=== PATIENT | male | born 1980 | race Caucasian/White ===

== ENCOUNTER 2016-10-18 09:02 | Observation (INO) | payer OTHER ==
[~2016-10-18] VITALS: Ht 177.8 cm; Wt 95.9 kg
--- NOTE | 2016-10-18 11:32 | DIAGNOSTIC IMAGING REPORT ---
PROCEDURE: US ABDOMEN ULTRASOUND-LIMITED INDICATION: RUQ PAIN TECHNIQUE: Falcon scale and color Doppler sonographic images of the abdomen were obtained without comparison. COMPARISON: None. FINDINGS: The liver demonstrates slight increased echogenicity. No mass or intrahepatic biliary dilatation. The gallbladder is normal without stones or sludge. The wall is normal thickness measuring 1.6 mm No pericholecystic fluid or Francis sign. The extrahepatic common duct is normal measuring 3.1 mm The visualized pancreas is normal without ductal dilatation or peripancreatic fluid collection. The abdominal aorta is normal in its course and caliber. The retrohepatic inferior vena cava is patent. There is appropriate hepatopetal flow in the portal vein. The right kidney measures 12.4 cm in length. There is no perihepatic or perisplenic ascites. IMPRESSION: 1. Fatty liver.
--- NOTE | 2016-10-18 13:36 | ED ORDER SUMMARY ---
..... Patient: JUAN KO OrderSheet [facility] VisitID: [id number] [place] [address] 35y, M Registration Date/Time: 10/18/2016 ORDER SHEET Weight: 90.7 kg (stated) Allergies: No Known Drug Allergy GENERAL ORDERS: CBC w Diff Urgent (:10/18/2016 Tahira Mathews) (Ack 9:21 Luis Ener) (9:25 MWinterer R.N.) CMP Urgent (:10/18/2016 Tahira Mathews) (Ack 9:21 Luis Ener) (9:25 MWinterer R.N.) UA-Culture if indicated Urgent (:10/18/2016 Tahira Mathews) (Ack 9:21 Maddy) (9:25 MWinterer R.N.) Amylase Urgent (:10/18/2016 Tahira Mathews) (Ack 9:21 Maddy) (9:25 MWinterer R.N.) Lipase Urgent (:10/18/2016 Tahira Mathews) (Ack 9:21 Luis Ener) (9:25 MWinterer R.N.) US Abdomen Limited (Yes) Urgent (10:31 10/18/2016 Tahira Mathews) (Ack 10:32 TERRIoevicky) (11:32 JBoardley R.N.) MEDICATION ORDERS: GI Cocktail WHITE PO 30 mL with Lidocaine Viscous Mouth/Throat 15 mL, Maalox Plus Oral 15 mL (NOW) (11:38 10/18/2016 JBoardlevalentina R.N. verbal order read back to Tahira Mathews) (11:39 JBoardlevalentina R.N.) IV FLUIDS: IV NS : initial bolus none -, then 1000 mL/hr for X1 (NOW) (09:10/18/2016 Tahira Mathews) (Ack 9:20 MWinterer R.N.) (9:27 JBoardlevalentina R.N.) Demerol IV 25 mg (HIGH ALERT MEDICATION, NOW) (09:10/18/2016 Tahira Mathews) (Ack 9:20 MWinterer R.N.) (9:28 JBoardley R.N.) Zofran IV 4 mg (NOW) (09:19 10/18/2016 Tahira Mathews) (Ack 9:20 MWinterer R.N.) (9:28 JBoardley R.N.) Famotidine IV 20 mg/50mL (NOW) (09:35 10/18/2016 Tahira Mathews) (Ack 9:36 MWinterer R.N.) (9:43 MWinterer R.N.) Demerol IV 25 mg (HIGH ALERT MEDICATION, NOW) (10:30 10/18/2016 Tahira Mathews) (Ack 10:31 MWinterer R.N.) (10:36 JBoardlevalentina R.N.) Dilaudid IV 1 mg (HIGH ALERT MEDICATION, NOW) (12:50 10/18/2016 MWinterer R.N. verbal order read back to Tahira Mathews) (12:54 MWinterer R.N.) ORDER SHEET NOTES: [Electronically signed by Issa Mejía Dr. (14:06 10/18/2016)] [Electronically signed by Valerie Harp R.N. (18:08 10/18/2016)] [Electronically locked/signed by Valerie Harp R.N. (18:08 10/18/2016)]
--- NOTE | 2016-10-18 13:36 | ED ORDER SUMMARY ---
..... Patient: JUAN KO OrderSheet [facility] VisitID: [id number] [place] [address] 35y, M Registration Date/Time: 10/18/2016 ORDER SHEET Weight: 90.7 kg (stated) Allergies: No Known Drug Allergy GENERAL ORDERS: CBC w Diff Urgent (:10/18/2016 Tahira Mathews) (Ack 9:21 Luis Ener) (9:25 MWinterer R.N.) CMP Urgent (:10/18/2016 Tahira Mathews) (Ack 9:21 Luis Ener) (9:25 MWinterer R.N.) UA-Culture if indicated Urgent (:10/18/2016 Tahira Mathews) (Ack 9:21 Maddy) (9:25 MWinterer R.N.) Amylase Urgent (:10/18/2016 Tahira Mathews) (Ack 9:21 Maddy) (9:25 MWinterer R.N.) Lipase Urgent (:10/18/2016 Tahira Mathews) (Ack 9:21 Luis Ener) (9:25 MWinterer R.N.) US Abdomen Limited (Yes) Urgent (10:31 10/18/2016 Tahira Mathews) (Ack 10:32 TERRIoevicky) (11:32 JBoardley R.N.) MEDICATION ORDERS: GI Cocktail WHITE PO 30 mL with Lidocaine Viscous Mouth/Throat 15 mL, Maalox Plus Oral 15 mL (NOW) (11:38 10/18/2016 JBoardlevalentina R.N. verbal order read back to Tahira Mathews) (11:39 JBoardlevalentina R.N.) IV FLUIDS: IV NS : initial bolus none -, then 1000 mL/hr for X1 (NOW) (09:10/18/2016 Tahira Mathews) (Ack 9:20 MWinterer R.N.) (9:27 JBoardlevalentina R.N.) Demerol IV 25 mg (HIGH ALERT MEDICATION, NOW) (09:10/18/2016 Tahira Mathews) (Ack 9:20 MWinterer R.N.) (9:28 JBoardley R.N.) Zofran IV 4 mg (NOW) (09:19 10/18/2016 Tahira Mathews) (Ack 9:20 MWinterer R.N.) (9:28 JBoardley R.N.) Famotidine IV 20 mg/50mL (NOW) (09:35 10/18/2016 Tahira Mathews) (Ack 9:36 MWinterer R.N.) (9:43 MWinterer R.N.) Demerol IV 25 mg (HIGH ALERT MEDICATION, NOW) (10:30 10/18/2016 Tahira Mathews) (Ack 10:31 MWinterer R.N.) (10:36 JBoardlevalentina R.N.) Dilaudid IV 1 mg (HIGH ALERT MEDICATION, NOW) (12:50 10/18/2016 MWinterer R.N. verbal order read back to Taihra Mathews) (12:54 MWinterer R.N.) ORDER SHEET NOTES: [Electronically signed by Issa Mejía Dr. (14:06 10/18/2016)] [Electronically signed by Valerie Harp R.N. (18:08 10/18/2016)] [Electronically locked/signed by Valerie Harp R.N. (18:08 10/18/2016)]
--- NOTE | 2016-10-18 13:36 | ED CLINICAL REPORT ---
Clinical Report - Physicians/Mid Levels [facility] [address] [place] [address] 10/18/2016 9:08 Patient: JUAN KO Time Seen: 09:14; initial patient contact. Arrived- By private vehicle. Historian- patient. HISTORY OF PRESENT ILLNESS Chief Complaint: ABDOMINAL PAIN. This started today and is still present (persistent). It was abrupt in onset and has been waxing/waning. At its maximum, severity described as moderate. When seen in the E.D., severity described as moderate. Modifying factors. Not worsened by anything. Not relieved by anything. It is described as sharp and stabbing. No radiation. It is described as located in the epigastric area. The patient has had nausea and vomiting. No loss of appetite or diarrhea. (Denies excessive NSAID or EtOH use.). No recent travel. Similar symptoms previously: Several times. ( Had an EGD ~ 6 yrs ago and told it was gastritis and was started on Omeprazole.). Recent medical care: Not recently seen/assessed. REVIEW OF SYSTEMS No constipation, black stools, hematemesis, difficulty with urination or bloody stools. No fever or chills. All systems otherwise negative, except as recorded above. PAST HISTORY See nurses notes. Surgeries: Sinus surgery. SOCIAL HISTORY Never smoker. Occasional alcohol use. History of drug use: marijuana. ADDITIONAL NOTES The nursing notes have been reviewed. PHYSICAL EXAM Vital Signs: 10/18/2016 09:12 BP: 136/86. HR: 62. RR: 16. O2 saturation: 100%. Temp: 98.7 F. Pain level now: 10/10. Have been reviewed as normal. Appearance: Alert. Oriented X3. No acute distress. Eyes: Eyes normal inspection. No scleral icterus. ENT: Dry mucous membranes present. CVS: Normal heart rate and rhythm. Heart sounds normal. Respiratory: No respiratory distress. Breath sounds normal. Chest nontender. Abdomen: Soft. Moderate tenderness in the epigastric area with guarding present. No rebound tenderness or Francis's sign present. Bowel sounds normal. No organomegaly. No mass. Back: Normal inspection. No CVA tenderness. Skin: Skin warm and dry. Normal skin color. Extremities: No lower extremity edema. Neuro: Oriented X 3. No motor deficit. LABS, X-RAYS, AND EKG Abdominal Sonogram: (The liver demonstrates slight increased echogenicity. No mass or intrahepatic biliary dilatation. The gallbladder is normal without stones or sludge. The wall is normal thickness measuring 1.6 mm No pericholecystic fluid or Francis sign. The extrahepatic common duct is normal measuring 3.1 mm The visualized pancreas is normal without ductal dilatation or peripancreatic fluid collection. The abdominal aorta is normal in its course and caliber. The retrohepatic inferior vena cava is patent. There is appropriate hepatopetal flow in the portal vein. The right kidney measures 12.4 cm in length. There is no perihepatic or perisplenic ascites. IMPRESSION: 1. Fatty liver.). Interpretation time: 1133. Laboratory Tests: UA-Culture if indicated: (SHAKIRA: 10/18/2016 09:20) ( [facility] 10/18/2016 10:09) Final results Test Result Flag Units (Reference) URINE COLOR YELLOW URINE APPEARANCE CLEAR URINE GLUCOSE NEGATIVE (NEGATIVE) URINE BILIRUBIN NEGATIVE (NEGATIVE) URINE KETONE 2+ (NEGATIVE) URINE SPECIFIC GRAVITY 1.020 (1.010-1.030) URINE PH 7.0 (5.0-8.0) URINE PROTEIN TRACE (NEGATIVE) URINE UROBILINOGEN 0.2 EU/dL (0.2-1.0) URINE NITRITE NEGATIVE (NEGATIVE) URINE BLOOD NEGATIVE (NEGATIVE) URINE LEUK ESTERASE NEGATIVE (NEGATIVE) URINE RBC 0-1 rbc/hpf (0-1) URINE WBC RARE wbc/hpf (0-1) URINE EPITHELIAL CELLS NONE SEEN EPI/hpf (0-5) URINE BACTERIA NONE SEEN (NONE SEEN) URINE COMMENT CULT NOT INDICATED 1+ MUCOUSURINE CULTURES ARE SET-UP BASED ON THE FOLLOWING CRITERIA:POSITIVE NITRITEPOSITIVE LEUKOCYTE ESTERASEGREATER THAN 10 WHITE BLOOD CELLSMODERATE (2+) OR GREATER BACTERIA CBC w Diff: (SHAKIRA: 10/18/2016 09:21) ( [facility] 10/18/2016 10:06) Final results Test Result Flag Units (Reference) WHITE BLOOD COUNT 15.4 H K/uL (4.5-11.5) RED BLOOD COUNT 4.74 M/uL (4.50-5.90) HEMOGLOBIN 15.3 gm/dL (13.5-17.5) HEMATOCRIT 44.8 % (41.0-53.0) MEAN CELL VOLUME 95 fL (80-100) MEAN CORPUSCULAR HGB 32 pg (26-34) MEAN CORPUSCULAR HGB CONC 34 g/dL (31-37) RED CELL DISTRIBUTION WIDTH 13.1 % (11.6-14.8) PLATELET COUNT 215 K/uL (150-400) NEUTROPHIL % 87.9 H % (50-75) LYMPH % 7.6 L % (25-40) MONO % 4.2 % (3-14) EOSINOPHIL % 0.1 % (0-4) BASOPHIL % 0.2 % (0-2) CMP: (SHAKIRA: 10/18/2016 09:21) ( MsgRcvd 10/18/2016 10:07) Final results Test Result Flag Units (Reference) GLUCOSE 165 H mg/dL (70-110) BUN 14 mg/dL (7-18) CREATININE 0.9 mg/dL (0.6-1.3) Estimated GFR >60 mL/min Estimated GFR- >60 mL/min Note: Persistent reduction over 3 months in eGFR<60 mL/min/1.73 m2 defines CKD. Patients with eGFR values>=60 mL/min/1.73 m2 may also have CKD if evidence ofpersistent proteinuria. Additional information may be foundat www.kidney.org. SODIUM 140 mmol/L (136-145) POTASSIUM 3.7 mmol/L (3.5-5.1) CHLORIDE 102 mmol/L (98-107) CARBON DIOXIDE 22 mmol/L (21-32) CALCIUM 9.0 mg/dL (8.5-10.1) TOTAL PROTEIN 8.6 H g/dL (6.4-8.2) ALBUMIN 4.6 g/dL (3.3-5.0) BILIRUBIN, TOTAL 0.4 mg/dL (0.0-1.0) ALKALINE PHOSPHATASE 61 U/L (46-116) AST (SGOT) 77 H U/L (15-37) ALT (SGPT) 121 H U/L (12-78) LIPASE 138 U/L (73-393) AMYLASE 51 U/L (25-115) . PROGRESS AND PROCEDURES Discussed case with on-call health care provider, (call returned 13:15 Dr. Waddell. Asked that pt be admitted to the hospitalist and he will do an EGD.). Discussed case with hospitalist, (call returned 13:35 Dr. Narvaez). Reviewed test results and need for additional work-up. Agreed upon decision to place in observation. Health care provider will see patient in ED. CLINICAL IMPRESSION Acute epigastric abdominal pain of unknown cause. INSTRUCTIONS Follow-up: Screening today revealed the patient's blood pressure to be in the hypertensive range. The patient was admitted and blood pressure will be managed during the admission. (Electronically signed by Issa Mejía Dr. 10/18/2016 14:06)
--- NOTE | 2016-10-18 13:36 | ED NURSING NOTES ---
Clinical Report - Nurses [facility] [address] [place] [address] 10/18/2016 9:08 Patient: JUAN KO TRIAGE Acuity: LEVEL 3. Chief Complaint: ABDOMINAL PAIN and VOMITING. Alert. No acute distress. SEPSIS SCREEN: Sepsis Screen. Negative (no infection suspected/documented). --09:15 Valerie Harp R.N. 09:12 10/18/16. BP: 136/86. HR: 62. RR: 16. O2 saturation: 100%. Temp: 98.7 F (oral). Pain level now: 10/10. --09:15 Valerie Harp R.N. Weight: 90.7 kg stated. Height/Length: 70 inches Per Patient. BMI: 28.7. --09:13 Valerie Harp R.N. Medications Amitriptyline HCl Oral. --09:14 Valerie Harp R.N. Omeprazole Oral. --09:14 Valerie Harp R.N. Medication/allergy information source: the patient. --09:16 Valerie Harp R.N. Allergies No Known Drug Allergy. --09:14 Valerie Harp R.N. History Arrived by private vehicle. Historian: patient. Accompanied by spouse. Primary physician (Joey). Describes the quality as "pain", sharp and stabbing. Relates location as in the epigastric area. Notes pain level as 10/10 on arrival and at maximum. Treatment MANAGER READING: (pepto). SOCIAL HX: Never smoker. Occasional alcohol use. History of occasional drug use: marijuana. FALL RISK ASSESSMENT: Fall risk assessment completed. No fall risk identified. NUTRITIONAL RISK ASSESSMENT: The nutritional risk assessment revealed no deficiencies. FUNCTIONAL ASSESSMENT: Functional assessment: no impairments noted. LEARNING NEEDS ASSESSMENT: The learning needs assessment revealed no barriers. SKIN INTEGRITY ASSESSMENT: Skin integrity risk assessment completed. No skin integrity risk identified. --09:15 Valerie Harp R.N. ADDITIONAL SURGERIES: Sinus Surgery. --09:15 Valerie Harp R.N. Assessment GENERAL / NEURO / PSYCH: Alert. Oriented X 4. Appears in no acute distress. Kennedy Coma Scale: 15- eyes open spontaneously (4); best verbal response- oriented x 4 (5); best motor response- obeys commands (6). Patient appears calm and cooperative. RESPIRATORY: Respirations not labored. CVS: Capillary refill less than 2 seconds. GI / : Abdomen soft and nontender. SKIN: Mucous membranes are pink. Skin is warm and dry. --09:15 Valerie Harp R.N. Interventions ID band on patient. To treatment room. --09:15 Valerie Harp R.N. PHYSICAL ASSESSMENT 09:16 10/18/16. Ambulatory to room. GENERAL / NEURO / PSYCH: Alert. Oriented X 4. Appears in no acute distress. HEENT: Mucous membranes are pink. RESPIRATORY: Respirations not labored. CVS: Capillary refill less than 2 seconds. GI / : Abdomen soft and nontender. SKIN: Skin is warm and dry. --09:16 Valerie Harp R.N. NURSING PROGRESS NOTES 09:10/18/16. Patient gowned. Two patient identifiers checked. Checked patient name and birthdate. Call light placed in reach. Side rails up x 1. Bed placed in lowest position. Brakes of bed on. Patient ready for evaluation- chart flagged and ED physician notified. --09:16 Valerie Harp R.N. 09:17 10/18/2016 Site #1 started via IV in the right antecubital space with an 20g angiocath, with aseptic technique and good blood return; one attempt. Blood drawn: rainbow set. Labeled in the presence of the patient and sent to the lab. Saline lock flushed with 10 mL saline. --09:27 Juan Antonio Munoz R.N. 09:18 10/18/2016 Zofran (Ondansetron HCl) IVP 4 mg given over 2 minute(s) via site #1. Allergies verified and confirmed 5 rights. IV patency established. IV site checked: no pain, redness, or swelling. IV flushed thoroughly pre- and post-medication administration. IVP given by RN. --09:28 Juan Antonio Munoz R.N. 09:22 10/18/2016 Started bag #1 1000 mL IV Fluids IV NS (Saline); at 1000 mL/hr over 1 hour(s) via site #1. Allergies verified and confirmed 5 rights. IV patency established. IV site checked: no pain, redness, or swelling. IV flushed thoroughly pre- and post-medication administration. Completed per protocol. --:27 Juan Antonio Munoz R.N. 09:23 10/18/2016 Demerol (Meperidine HCl) IVP 25 mg given over 2 minute(s) via site #1. Allergies verified and confirmed 5 rights. IV patency established. IV site checked: no pain, redness, or swelling. IV flushed thoroughly pre- and post-medication administration. IVP given by RN. --09:28 Juan Antonio Munoz R.N. 09:10/18/16. --: Juan Antonio Munoz R.N. 09:10/18/16. BP: 122/53. HR: 59. RR: 16. O2 saturation: 100% on room air. --:28 Juan Antonio Munoz R.N. 09:10/18/16. Patient ID band checked for patient name and birthdate urine collected; sample sent to lab for urinalysis and culture. Specimen labeled in the presence of the patient. --: Juan Antonio Munoz R.N. 09:10/18/16. Pulse oximeter and NIBP monitor placed on patient; monitor alarms on. --: Juan Antonio Munoz R.N. 09:10/18/16. Patient and family informed about reason for wait and about plan of care. --:29 Juan Antonio Munoz R.N. 09:29 10/18/16. Patient waiting for lab results. --:29 Juan Antonio Munoz R.N. 09:43 10/18/2016 Started 20 mg of Famotidine IVPB in bag #1 50 mL; at 100 mL/hr over 30 minute(s) via site #1 via IV pump. Allergies verified and confirmed 5 rights. IV patency established. IV site checked: no pain, redness, or swelling. IV flushed thoroughly pre- and post-medication administration. --09:43 Valerie Harp R.N. 10:10/18/2016 Famotidine IVPB Discontinued: bag #1 infused. Total amount infused: 50 mL. IV patency established. IV site checked: no pain, redness, or swelling. IV flushed thoroughly. --10:24 Valerie Harp R.N. 10:10/18/2016 Demerol IVP Response: no adverse reaction pain is improving. Symptoms have improved the patient feels better. --10:25 Valerie Harp R.N. 10:10/18/2016 Demerol (Meperidine HCl) IVP 25 mg given over 2 minute(s) via site #1. Allergies verified and confirmed 5 rights. IV patency established. IV site checked: no pain, redness, or swelling. IV flushed thoroughly pre- and post-medication administration. IVP given by RN. --10:36 Juan Antonio Munoz R.N. 10:10/18/2016 IV Fluids IV NS Discontinued: bag #1 infused. Total amount infused: 1000 mL. IV patency established. IV site checked: no pain, redness, or swelling. IV flushed thoroughly. --10:31 Valerie Harp R.N. 11:32 10/18/16. BP: 159/75. HR: 71. RR: 16. O2 saturation: 100% on room air. Pain level now: 01/19. --11:33 Juan Antonio Munoz R.N. 11:33 10/18/16. --11:33 Juan Antonio Munoz R.N. 11:33 10/18/16. ( US completed at bedside). --11:33 Juan Antonio Munoz R.N. 11:39 10/18/2016 GI COCKTAIL WHITE (Simethicone) PO 30 mL given. Allergies verified and confirmed 5 rights. --11:39 Juan Antonio Munoz R.N. 12:03 10/18/16. Patient and family informed about reason for wait and about plan of care. --12:03 Juan Antonio Munoz R.N. 12:10/18/16. Patient waiting for disposition. --12:03 Juan Antonio Munoz R.N. 12:04 10/18/16. Overall patient status is the same- he states feels the same. ( pain went to 7/10 after med, pain prior to med was 8/10, feels "a little better"). --12:04 Juan Antonio Munoz R.N. 12:54 10/18/2016 Dilaudid (HYDROmorphone HCl PF) IVP 1 mg given over 2 minute(s) via site #1. Allergies verified, confirmed 5 rights and sedative warning given to the patient. IV patency established. IV site checked: no pain, redness, or swelling. IV flushed thoroughly pre- and post-medication administration. IVP given by RN. --12:54 Valerie Harp R.N. 12:54 10/18/16. BP: 152/100. HR: 74. RR: 16. O2 saturation: 99% on room air. Pain level now: 12/19. --12:57 Valerie Harp R.N. 14:03 10/18/16. BP: 143/84. HR: 85. RR: 16. O2 saturation: 95% on room air. --14:05 Valerie Harp R.N. DISPOSITION / DISCHARGE Departure time: 14:35 Oct 18 2016. Admitted to Acute Care. Transported via stretcher by [facility]. Report was given to a nurse via a phone call. Report included patient's care, treatment, medications, reviewed medication reconcilliation, and condition (including any recent changes or anticipated changes). All questions were answered. Report was acknowledged and care was transferred. (HARVEY Scanlon). Patient's personal items include: socks and cell phone, shorts; items were given to the patient and transported with the patient. He did not have glasses, contacts, dentures or a hearing aid. --14:35 Valerie Harp R.N. 14:33 10/18/16. BP: 150/82. HR: 80. RR: 20. O2 saturation: 95% on room air. Pain level now: 08/19. --14:35 Valerie Harp R.N. 14:35 10/18/2016 Site #[address] upon admission; patent, no pain and no signs of infection or infiltration; flushes easily. --14:35 Valerie Harp R.N. Locked/Released at 10/18/2016 18:09 by Valerie Harp R.N.
--- NOTE | 2016-10-18 14:49 | Progress Note ---
Subjective General Admission History and Physical Examination Patient Name: Reed Combs Patient ID: [id number] Admission Date: October 18, 2016 Primary Care Provider: ([facility] Attending Physician: Du Narvaez M.D. Admitting Physician: Du Narvaez M.D. Code Status: FULL CODE Room: Status: Observation acute care SUBJECTIVE Historian: Patient and Reliability: Good Chief Complaint: Epigastric pain Vomiting History of Present Illness: The patient is a 35-year-old white male with a significant past medical history of GERD, sleep disorder who presented to [facility] emergency room 's on the day of admission secondary to complaints of acute abdominal pain and intractable vomiting The [facility] ER evaluation was consistent with potential great gastritis, GERD. Patient was consulted by general surgery. In the emergency department. General surgery asked to be consulting physician while internists remain as the admitting physician. Secondary to the above, the patient was admitted by Du Narvaez M.D. for further evaluation and treatment. Patient reports that he woke up early this morning with intense epigastric pain. Patient had multiple rounds of vomiting this morning. Patient states that mostly is dry heaves. Patient had no diarrhea. No fever no rash. Patient had a similar pain 6 years ago. Patient was seen by his primary care at [facility], [place], operated by [facility]. Patient then had a follow-up EGD at that time. This mostly showed gastritis. Patient was put on omeprazole in this gave him relief up until this recurrent episode. Patient has a history of tobacco chewing on a daily basis. Patient has no history of alcohol use or prolonged NSAID use. Patient has no bleeding from the stool. PAST MEDICAL HISTORY Illnesses: 1. Gastritis, GERD 2. Sleep disorder Allergies: NKDA Medications: Omeprazole 20 mg by mouth daily Triazolam 0.25 mg by no at bedtime Adderall 20 mg by mouth daily (discontinued) Surgery: Sinus surgery EGD 6 years ago Hospitalizations: None FAMILY HISTORY Parents: 1. Father living, healthy 2. Mother- living, healthy SOCIAL HISTORY 1. Marital Status: 11 years 2. Christianity: unknown 3. Education: College 4. Employment History: Working, involves travel, 5. Occupational health exposures: Unknown HABITS 1. Tobacco: Tobacco use (chewing) 2. Drugs: None 3. Alcohol: None 4. Caffeine: Unknown HEALTH SUPERVISION Item/Test unknown IMMUNIZATIONS: Unknown ADVANCED DIRECTIVES: 1. Advanced directive; no living will or advanced directive 2. POLST: No; 3. 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 Donor card: Unknown REVIEW OF SYSTEMS Remarkable for those things stated in the history of present illness and past medical history. Seventeen point review of system completed with the following notable findings: Physical Exam Vital Signs / I&Os Vital Signs Date Time Temp Pulse Resp B/P Pulse O2 O2 Flow FiO2 Ox Delivery Rate 10/18 1724 98.2 78 19 118/69 98 10/18 1720 86 19 118/69 95 10/18 1715 93 17 96/76 95 10/18 1710 85 15 138/102 95 10/18 1705 91 18 119/69 95 10/18 1702 99.1 93 17 123/70 95 10/18 1450 98.1 78 20 136/89 96 Room Air General Appearance Oriented X3 HEENT PERRLA Lungs Normal air movement Neck Supple, No JVD Cardiovascular Regular rate and rhythm, Normal S1 and S2 Extremities Normal exam Psych/Mental Status Mood normal LAB Results Laboratory Tests 10/18 10/18 0920 0921 Chemistry Plasma Sodium (136 - 145 mmol/L) 140 Plasma Potassium (3.5 - 5.1 mmol/L) 3.7 Plasma Chloride (98 - 107 mmol/L) 102 CO2 (Enzymatic) (21 - 32 mmol/L) 22 BUN (7 - 18 mg/dL) 14 Creatinine (0.6 - 1.3 mg/dL) 0.9 Est GFR ( Amer) (mL/min) >60 Est GFR (Non-Af Amer) (mL/min) >60 Glucose (70 - 110 mg/dL) 165 Plasma Calcium (8.5 - 10.1 mg/dL) 9.0 Total Bilirubin (0.0 - 1.0 mg/dL) 0.4 AST (15 - 37 U/L) 77 ALT (12 - 78 U/L) 121 Alkaline Phosphatase (46 - 116 U/L) 61 Total Protein (6.4 - 8.2 g/dL) 8.6 Albumin (3.3 - 5.0 g/dL) 4.6 Amylase (25 - 115 U/L) 51 Lipase (73 - 393 U/L) 138 Hematology WBC (4.5 - 11.5 K/uL) 15.4 RBC (4.50 - 5.90 M/uL) 4.74 Hgb (13.5 - 17.5 gm/dL) 15.3 Hct (41.0 - 53.0 %) 44.8 MCV (80 - 100 fL) 95 MCH (26 - 34 pg) 32 RDW (11.6 - 14.8 %) 13.1 Neut % (Auto) (50 - 75 %) 87.9 Lymph % (Auto) (25 - 40 %) 7.6 [place] % (Auto) (3 - 14 %) 4.2 Eos % (Auto) (0 - 4 %) 0.1 Baso % (Auto) (0 - 2 %) 0.2 Plt Count, EDTA (150 - 400 K/uL) 215 PUBS MCHC (31 - 37 g/dL) 34 Urines Urine Color YELLOW Urine Appearance CLEAR Urine pH (5.0 - 8.0) 7.0 Ur Specific [place] (1.010 - 1.030) 1.020 Urine Protein (NEGATIVE) TRACE Urine Ketones (NEGATIVE) 2+ Urine Blood (NEGATIVE) NEGATIVE Urine Nitrite (NEGATIVE) NEGATIVE Urine Bilirubin (NEGATIVE) NEGATIVE Urine Urobilinogen (0.2 - 1.0 EU/dL) 0.2 Ur Leukocyte Esterase (NEGATIVE) NEGATIVE Urine RBC (0 - 1 rbc/hpf) 0-1 Urine WBC (0 - 1 wbc/hpf) RARE Ur Epithelial Cells (0 - 5 EPI/hpf) NONE SEEN Urine Bacteria (NONE SEEN) NONE SEEN Urine Glucose (NEGATIVE) NEGATIVE Urine Comment CULT NOT INDICATED Microbiology Date/Time Procedure - Status Source Growth 10/18 1650 CLOtest - ORD GASTRIC Assessment and Plan Problem List 1. Epigastric pain Plan Patient is admitted for intractable epigastric pain. Patient also had recurrent episodes of vomiting. Started on ondansetron be given every 4 hours as needed. Protonix 40 mg daily. Consulting general surgery for potential EGD today. 2. GERD (gastroesophageal reflux disease) Plan Previous history of GERD treated previously with PPI. Patient will be nothing by mouth until EGD performed. Pressure for any blood loss. Control pain 3. Vomiting Plan Recurrent emesis over the past 12 hours. Ondansetron 4 mg by mouth every 8 hours. Protonix 40 mg daily 4. Intractable abdominal pain Plan Admission to observation with intractable abdominal pain Current status: Fair, stable Anticipated discharge date: Anticipated discharge in 1-2 days Anticipated discharge placement: Home Patient care time: Time spent in chart review, patient interview, physical exam, CPOE, and care documentation: 70 minutes Visit to patient today: 1 Complexity of care: Mild/moderate DVT prophylaxis: SCDs GI prophylaxis: Protonix 40 mg IV Initial patient evaluation: Emergency department Advance care plan: Full code
[2016-10-18 14:50] VITALS: BP 136/89
[2016-10-18] MEDS ORDERED: RESTORIL30 MG (15:34)
[2016-10-18] MEDS ORDERED: PRILOSEC20 MG (15:35)
[2016-10-18] MEDS ORDERED: AMITRIPTYLINE H10 MG PO (15:35)
[2016-10-18] MEDS ORDERED: MULTIPLE VITAMIN PO (15:36)
[2016-10-18] MEDS ORDERED: ZYRTEC ALLERGY10 MG (15:36)
--- NOTE | 2016-10-18 15:44 | NUR ---
RECEIVED PT FROM ED. HE WILL BE GOING FOR ENDOSCOPY THIS AFTERNOON. PT HAS 5-6/10 EPIGASTRIC PAIN AND HAS BEEN MEDICATED WITH DILAUDID 1 MG. NICOTINE PATCH APPLIED PER ED MD ORDER FOR CHEWING TABACCO USAGE. RAC IL INTACT AND LR 150 CC/HR STARTED. PT AMBULATED TO BED FROM [facility] AND WAS STEADY ON FEET. IS AT BEDSIDE. ADMISSION INFORMATION WAS DONE.
--- NOTE | 2016-10-18 16:23 | Consultation Report ---
History Chief Complaint Epigastric abdominal pain History of Present Illness 35-year-old male who awoke at approximately 2 AM with severe acute onset epigastric abdominal pain approximately 2 hours later developed nausea and vomiting. No hematemesis. No coffee-ground emesis. No diarrhea. No lightheadedness. No prior history of peptic ulcer disease. Patient has had on and off similar symptoms to those which are present today. Patient has undergone upper GI endoscopy probably 6 years ago for similar symptoms. Patient states that 2 days symptoms are worse by far that any he's had so far. No family history of esophageal or gastric or pancreatic cancer. Patient was admitted to [facility] by the hospitalist [facility] were asked to consult. ALLERGIES: No known medical allergies. MEDICATIONS: Femazopam 30 mg daily Omeprazole 20 mg daily Amitriptyline 20 mg daily Multivitamins 1 daily. Zyrtec 1 tablet daily PAST MEDICAL/SURGICAL HISTORY: Sinus surgeries EGD 6 years ago Patient History 1. Epigastric abdominal pain Social History . One son and 1 daughter alive and well. Patient does not smoke however he does chew tobacco. Uses pouches 5-7 per day. Alcohol history 2-3 glasses of wine per week at most. Coffee drinks anywhere between 3-4 cups per day. Recreational drugs marijuana 1 joint every few months. Recreational. FAMILY HISTORY: Mother age 59 in good health Father age 62 in good health. 3 brothers alive and wellas to Medications and Allergies Medications See above dictation Current Medications Sig/Irma Start time Last Medication Dose Route Stop Time Status Admin Pantoprazole Sodium 40 MG DAILY@0600 05/10 0600 AC IV Triazolam 0.25 MG QHS 10/18 2100 AC PO Nicotine 21 MG DAILY 10/18 1600 AC 10/18 TOP 1530 Hydromorphone HCl 1 MG Q1H PRN 10/18 1445 AC 10/18 IV 1526 Lactated Ringer's 1,000 ML ASDIRECTED 10/18 1445 AC 10/18 IV 1453 Ondansetron HCl 4 MG Q6H PRN 10/18 1445 AC IV Allergies Coded Allergies: No Known Drug Allergy (10/18/16) Review of Systems Other No history of hepatitis, jaundice, rheumatic fever, heart murmurs requiring antibiotics, leading tendencies, or blood transfusions. Positive for gastroesophageal reflux. Remaining 12 point review of systems negative. Physical Exam Vital Signs / I&Os Vital Signs Date Time Temp Pulse Resp B/P Pulse O2 O2 Flow FiO2 Ox Delivery Rate 10/18 1450 98.1 78 20 136/89 96 Room Air General Appearance Alert, Oriented X3, Cooperative, No acute distress HEENT Normal exam, Atraumatic, PERRLA, EOMI, Moist mucous membranes Lungs Clear to auscultation Neck Supple, No JVD, No masses, No thyromegaly, No lymphadenopathy Cardiovascular Regular rate and rhythm Abdomen Normal bowel sounds, Soft, No tenderness, No guarding, No masses Extremities No cyanosis, No clubbing, No edema Skin warm and dry. No peripheral cyanosis Neurological No lateralizing signs Psych/Mental Status Mood normal LAB Results Laboratory Tests 10/18 10/18 0920 0921 Chemistry Plasma Sodium (136 - 145 mmol/L) 140 Plasma Potassium (3.5 - 5.1 mmol/L) 3.7 Plasma Chloride (98 - 107 mmol/L) 102 CO2 (Enzymatic) (21 - 32 mmol/L) 22 BUN (7 - 18 mg/dL) 14 Creatinine (0.6 - 1.3 mg/dL) 0.9 Est GFR ( Amer) (mL/min) >60 Est GFR (Non-Af Amer) (mL/min) >60 Glucose (70 - 110 mg/dL) 165 Plasma Calcium (8.5 - 10.1 mg/dL) 9.0 Total Bilirubin (0.0 - 1.0 mg/dL) 0.4 AST (15 - 37 U/L) 77 ALT (12 - 78 U/L) 121 Alkaline Phosphatase (46 - 116 U/L) 61 Total Protein (6.4 - 8.2 g/dL) 8.6 Albumin (3.3 - 5.0 g/dL) 4.6 Amylase (25 - 115 U/L) 51 Lipase (73 - 393 U/L) 138 Hematology WBC (4.5 - 11.5 K/uL) 15.4 RBC (4.50 - 5.90 M/uL) 4.74 Hgb (13.5 - 17.5 gm/dL) 15.3 Hct (41.0 - 53.0 %) 44.8 MCV (80 - 100 fL) 95 MCH (26 - 34 pg) 32 RDW (11.6 - 14.8 %) 13.1 Neut % (Auto) (50 - 75 %) 87.9 Lymph % (Auto) (25 - 40 %) 7.6 [place] % (Auto) (3 - 14 %) 4.2 Eos % (Auto) (0 - 4 %) 0.1 Baso % (Auto) (0 - 2 %) 0.2 Plt Count, EDTA (150 - 400 K/uL) 215 PUBS MCHC (31 - 37 g/dL) 34 Urines Urine Color YELLOW Urine Appearance CLEAR Urine pH (5.0 - 8.0) 7.0 Ur Specific [place] (1.010 - 1.030) 1.020 Urine Protein (NEGATIVE) TRACE Urine Ketones (NEGATIVE) 2+ Urine Blood (NEGATIVE) NEGATIVE Urine Nitrite (NEGATIVE) NEGATIVE Urine Bilirubin (NEGATIVE) NEGATIVE Urine Urobilinogen (0.2 - 1.0 EU/dL) 0.2 Ur Leukocyte Esterase (NEGATIVE) NEGATIVE Urine RBC (0 - 1 rbc/hpf) 0-1 Urine WBC (0 - 1 wbc/hpf) RARE Ur Epithelial Cells (0 - 5 EPI/hpf) NONE SEEN Urine Bacteria (NONE SEEN) NONE SEEN Urine Glucose (NEGATIVE) NEGATIVE Urine Comment CULT NOT INDICATED Imaging Ultrasound of the patient's abdomen interpreted by radiology as a fatty liver. Otherwise normal. Assessment and Plan Problem List 1. Epigastric pain Plan We will schedule patient for upper GI endoscopy rule out peptic ulcer disease. The procedure has been explained to the patient including the potential risks of perforation and bleeding. Patient understands and agrees to proceed and we'll schedule him urgently
--- NOTE | 2016-10-18 17:14 | NUR ---
PT IS AWAKE AND ALERT. PT DENIES PAIN OR NAUSEA. VSS. QUESTIONS ENCOURAGED AND ANSWERED.
--- NOTE | 2016-10-18 17:16 | Operative Report ---
Operative Report Date of Surgery: 10/18/16 Preoperate Diagnosis: epigastric abdominal pain. Rule out peptic ulcer disease Postoperative Diagnosis: fundic glandular polyps. No evidence peptic ulcer disease Surgeon: Angel Luis Waddell MD Spanish Medical Interpreter Surgeon: none Procedure Performed: Upper GI endoscopy. Gastric mucosal biopsies Anesthesia: Total intra- venous general anesthesia Indications: 35-year-old male admitted with acute onset epigastric abdominal pain from the emergency room. Associated with emesis. No hematemesis. No coffee ground emesis. No melenic stool. Prior history of epigastric abdominal pain in the past. Upper GI endoscopy 6 years ago. No history of peptic ulcer disease. FINDINGS: Normal appearing esophagus, EG junction approximately 40 cm from the dental incisors. Gastric mucosal pattern scattered fundic gland or polyps. No evidence of hyperemia or peptic ulcer disease. Duodenal bulb normal. The second- third portion of duodenum normal as well. Surgical Technique: Patient brought to the operating room placed in the left lateral decubitus position. Patient was administered total intravenous anesthesia.. Once anesthesia had taken affect, the posterior pharynx was sprayed using Cetacaine spray. An Olympus fiberoptic video upper GI endoscope was passed in to the patient's posterior pharynx. The esophagus intubated under direct visualization. The scope passed easily down the esophagus through the EG junction which was located approximately at. The scope passed easily through the EG junction into the gastric lumen and eventually into the second third portion of duodenum. On withdrawing the scope, the afore mentioned findings were noted. The scope was withdrawn into the gastric lumen and retroflexed. Good view of the cardia, fundus, EG junction from below, and greater and lesser curvature. Multiple random biopsies were obtained of the gastric mucosa to rule out H. pylori. Multiple biopsies were obtained of the fundic gland or polyps as well. The scope was withdrawn into the EG junction. No attempt was made to biopsy the distal esophagus secondary to the patient pulling out the endoscope at the end of the procedure. Patient tolerated procedure well. Patient was transferred to the recovery room in stable condition. There were no intraoperative or anesthetic complications.
[2016-10-18 17:30] VITALS: BP 117/70
--- NOTE | 2016-10-18 18:09 | ED MED RECONCILIATION SUMMARY ---
Patient: JUAN KO Medication Reconciliation Report [facility] VisitID: [id number] [address] [place] [address] 35y, M Registration Date/Time: 10/18/2016 Weight: 90.7 kg Height/Length: 70 in. BMI: 28.7 ALLERGIES: No Known Drug Allergy The patient's Home Medications are listed below: THE FOLLOWING MEDICATIONS NEED TO BE RECONCILED: Amitriptyline HCl Oral Omeprazole Oral The source(s) of the original Home Medication information: patient The following Medications were given to the patient in the Emergency Department: IV NS IV Fluids bolus 0, then 1000 mL/hr, administered: 10/18/2016 9:22:00 AM Demerol [IVP] IVP 25 mg, administered: 10/18/2016 9:23:00 AM Zofran [IVP] IVP 4 mg, administered: 10/18/2016 9:18:00 AM Famotidine [IVPB] IVPB bolus 0, then 20 mg 100 mL/hr, administered: 10/18/2016 9:43:00 AM Demerol [IVP] IVP 25 mg, administered: 10/18/2016 10:31:00 AM GI COCKTAIL WHITE [PO] PO 30 mL, administered: 10/18/2016 11:39:00 AM Dilaudid [IVP] IVP 1 mg, administered: 10/18/2016 12:54:00 PM The following Medications were prescribed to the patient: None.
--- NOTE | 2016-10-18 18:09 | ED MAR SUMMARY ---
..... Medication Administration Record [facility] [address] [place] [address] Patient: JUAN KO Visit ID: [id number] 35y, M Weight: 90.7 kg Height/Length: 70 in BMI: 28.7 ALLERGIES: No Known Drug Allergy Given 09:18 10/18/2016 Juan Antonio Munoz R.N. Medication Administered: ZOFRAN [IVP] (ONDANSETRON HCL), Dose: 4 mg IVP over 2 minute(s), Site: #1 right AC. Medication Ordered: Zofran IV 4 mg (NOW). Start 09:22 10/18/2016 Juan Antonio Munoz R.N., Stop 10:31 10/18/2016 Valerie Harp R.N. Medication Administered: IV NS (SALINE), Dose: IV Fluids over 1 hour(s), Rate: 1000 mL/hr, Dispensed: 1000 mL bag, Site: #1 right AC. Medication Ordered: IV NS : initial bolus none -, then 1000 mL/hr for X1 (NOW). Given 09:23 10/18/2016 Juan Antonio Munoz R.N. Medication Administered: DEMEROL [IVP] (MEPERIDINE HCL), Dose: 25 mg IVP over 2 minute(s), Site: #1 right AC. Medication Ordered: Demerol IV 25 mg (HIGH ALERT MEDICATION, NOW). Start 09:43 10/18/2016 Valerie Harp R.N., Stop 10:09 10/18/2016 Valerie Harp R.N. Medication Administered: FAMOTIDINE [IVPB], Dose: 20 mg IVPB over 30 minute(s), Rate: 100 mL/hr, Dispensed: 50 mL bag, Site: #1 right AC. Medication Ordered: Famotidine IV 20 mg/50mL (NOW). Given 10:31 10/18/2016 Juan Antonio Munoz R.N. Medication Administered: DEMEROL [IVP] (MEPERIDINE HCL), Dose: 25 mg IVP over 2 minute(s), Site: #1 right AC. Medication Ordered: Demerol IV 25 mg (HIGH ALERT MEDICATION, NOW). Given 11:39 10/18/2016 Juan Antonio Munoz, R.N. Medication Administered: GI COCKTAIL WHITE [PO] (SIMETHICONE), Dose: 30 mL PO. Medication Ordered: GI Cocktail WHITE PO 30 mL with Lidocaine Viscous Mouth/Throat 15 mL, Maalox Plus Oral 15 mL (NOW). Given 12:54 10/18/2016 Valerie Harp RCalvin. Medication Administered: DILAUDID [IVP] (HYDROMORPHONE HCL PF), Dose: 1 mg IVP over 2 minute(s), Site: #1 right AC. Medication Ordered: Dilaudid IV 1 mg (HIGH ALERT MEDICATION, NOW).
--- NOTE | 2016-10-18 18:09 | ED DISCHARGE INSTRUCTIONS ---
Patient: JUAN KO General Instructions [facility] VisitID: [id number] [address] [place] [place] [address] 35y, M Registration Date/Time: 10/18/2016 Acute epigastric abdominal pain of unknown cause. INSTRUCTIONS Follow-up: Screening today revealed the patient's blood pressure to be in the hypertensive range. The patient was admitted and blood pressure will be managed during the admission. (Electronically signed by Issa Mejía Dr. 10/18/2016 14:06)
--- NOTE | 2016-10-18 18:09 | ED DISCHARGE INSTRUCTIONS ---
Patient: JUAN KO General Instructions [facility] VisitID: [id number] [address] [place] [address] 35y, M Registration Date/Time: 10/18/2016 Acute epigastric abdominal pain of unknown cause. INSTRUCTIONS Follow-up: Screening today revealed the patient's blood pressure to be in the hypertensive range. The patient was admitted and blood pressure will be managed during the admission. (Electronically signed by Issa Mejía Dr. 10/18/2016 14:06)
--- NOTE | 2016-10-18 18:09 | ED MAR SUMMARY ---
..... Medication Administration Record [facility] [address] [place] [address] Patient: JUAN KO Visit ID: [id number] 35y, M Weight: 90.7 kg Height/Length: 70 in BMI: 28.7 ALLERGIES: No Known Drug Allergy Given 09:18 10/18/2016 Juan Antonio Munoz R.N. Medication Administered: ZOFRAN [IVP] (ONDANSETRON HCL), Dose: 4 mg IVP over 2 minute(s), Site: #1 right AC. Medication Ordered: Zofran IV 4 mg (NOW). Start 09:22 10/18/2016 Juan Antonio Munoz R.N., Stop 10:31 10/18/2016 Valerie Harp R.N. Medication Administered: IV NS (SALINE), Dose: IV Fluids over 1 hour(s), Rate: 1000 mL/hr, Dispensed: 1000 mL bag, Site: #1 right AC. Medication Ordered: IV NS : initial bolus none -, then 1000 mL/hr for X1 (NOW). Given 09:23 10/18/2016 Juan Antonio Munoz R.N. Medication Administered: DEMEROL [IVP] (MEPERIDINE HCL), Dose: 25 mg IVP over 2 minute(s), Site: #1 right AC. Medication Ordered: Demerol IV 25 mg (HIGH ALERT MEDICATION, NOW). Start 09:43 10/18/2016 Valerie Harp R.N., Stop 10:09 10/18/2016 Valerie Harp R.N. Medication Administered: FAMOTIDINE [IVPB], Dose: 20 mg IVPB over 30 minute(s), Rate: 100 mL/hr, Dispensed: 50 mL bag, Site: #1 right AC. Medication Ordered: Famotidine IV 20 mg/50mL (NOW). Given 10:31 10/18/2016 Juan Antonio Munoz R.N. Medication Administered: DEMEROL [IVP] (MEPERIDINE HCL), Dose: 25 mg IVP over 2 minute(s), Site: #1 right AC. Medication Ordered: Demerol IV 25 mg (HIGH ALERT MEDICATION, NOW). Given 11:39 10/18/2016 Juan Antonio Munoz, R.N. Medication Administered: GI COCKTAIL WHITE [PO] (SIMETHICONE), Dose: 30 mL PO. Medication Ordered: GI Cocktail WHITE PO 30 mL with Lidocaine Viscous Mouth/Throat 15 mL, Maalox Plus Oral 15 mL (NOW). Given 12:54 10/18/2016 Valerie Harp RCalvin. Medication Administered: DILAUDID [IVP] (HYDROMORPHONE HCL PF), Dose: 1 mg IVP over 2 minute(s), Site: #1 right AC. Medication Ordered: Dilaudid IV 1 mg (HIGH ALERT MEDICATION, NOW).
--- NOTE | 2016-10-18 18:09 | ED MED RECONCILIATION SUMMARY ---
Patient: JUAN KO Medication Reconciliation Report [facility] VisitID: [id number] [address] [place] [address] 35y, M Registration Date/Time: 10/18/2016 Weight: 90.7 kg Height/Length: 70 in. BMI: 28.7 ALLERGIES: No Known Drug Allergy The patient's Home Medications are listed below: THE FOLLOWING MEDICATIONS NEED TO BE RECONCILED: Amitriptyline HCl Oral Omeprazole Oral The source(s) of the original Home Medication information: patient The following Medications were given to the patient in the Emergency Department: IV NS IV Fluids bolus 0, then 1000 mL/hr, administered: 10/18/2016 9:22:00 AM Demerol [IVP] IVP 25 mg, administered: 10/18/2016 9:23:00 AM Zofran [IVP] IVP 4 mg, administered: 10/18/2016 9:18:00 AM Famotidine [IVPB] IVPB bolus 0, then 20 mg 100 mL/hr, administered: 10/18/2016 9:43:00 AM Demerol [IVP] IVP 25 mg, administered: 10/18/2016 10:31:00 AM GI COCKTAIL WHITE [PO] PO 30 mL, administered: 10/18/2016 11:39:00 AM Dilaudid [IVP] IVP 1 mg, administered: 10/18/2016 12:54:00 PM The following Medications were prescribed to the patient: None.
--- NOTE | 2016-10-18 18:19 | NUR ---
RECEIVED PT FROM PACU. ALERT, C/O SOME THROAT NUMBNESS AND PAIN IN EPIGASTRIC AREA ABOUT 6. DILAUDID 1 MG IV WAS GIVEN TO HIM. DR CRAWFORD INTO SEE PT AND RECOMMENDED THAT HE STAY OVERNIGHT. ALSO TO START GENERAL DIET AND EVALUATE IF EPIGASTRIC PAIN CONTINUES. DR PALMER INTO SEE PT TO ANSWER QUESTION. IV RATE DECREASED TO TKO.
[2016-10-18 18:20] VITALS: BP 120/77
[2016-10-18 18:40] VITALS: BP 126/81
[2016-10-18 20:21] VITALS: BP 123/78
--- NOTE | 2016-10-18 22:37 | NUR ---
A&OX3, LS CTA AND BT ACTIVE. C/O EPIGASTRIC PAIN 6/10, PAIN MEDS GIVEN. NO NAUSEA. AMBULATING IND AROUND UNIT 3 TIMES THIS EVENING. RESTING W/ CALL LIGHT IN REACH.
[2016-10-18 23:05] VITALS: BP 127/68
[2016-10-19 03:03] VITALS: BP 118/72
--- NOTE | 2016-10-19 03:29 | NUR ---
PT. AMBULATING X3 LOOPS AROUND UNIT. C/O GENERALIZED ABDOMINAL PAIN, 11/19. REQUESTING PAIN MEDICATION, DILAUDID ADMINISTERED. PT. REPORTED FEELING GENERAL ITCHING WHEN DILAUDID WAS ADMINISTERED AROUND 2200. BENADRYL GIVEN, EFFECTIVE. ASSESSMENT COMPLETED. WCTM.
--- NOTE | 2016-10-19 06:30 | Progress Note ---
Subjective General Note Date: Admission Date: 10/18/2016 Hospital Day: 2 PCP: Ezequiel Howell Status: Observation acute care Advanced Directive: Full code Room: 210 35-year-old white male with a significant past medical history of GERD, sleep disorder who presented to [facility] emergency room 's on the day of admission secondary to complaints of acute abdominal pain and intractable vomiting The [facility] ER evaluation was consistent with potential great gastritis, GERD. Patient was consulted by general surgery. In the emergency department. General surgery asked to be consulting physician while internists remain as the admitting physician. Secondary to the above, the patient was admitted by Du Narvaez M.D. for further evaluation and treatment. subjective Patient reports that he is doing somewhat better. He is reporting that the pain is reduced. Patient was seen for EGD yesterday. Follow-up should be with primary care and recommendations for HIDA scan with an ejection fraction. This should be scheduled as an outpatient procedure. Patient had long discussion regarding his tobacco use. Recommended the patient discontinue chewing tobacco upon discharge. Patient should have replacement for that tobacco. Patient has been under added stress. Patient, however, is ready to go home. Patient requesting pain control until seen by PCP. Patient request discharge home Physical Exam Vital Signs / I&Os Vital Signs Date Time Temp Pulse Resp B/P Pulse O2 O2 Flow FiO2 Ox Delivery Rate 10/19 0303 98.1 76 18 118/72 95 Room Air 10/18 2305 98.2 94 18 127/68 95 Room Air 10/18 2021 89 18 123/78 96 Room Air 10/18 1840 98.1 91 18 126/81 96 10/18 1820 84 18 120/77 96 Room Air 10/18 1730 97.0 83 93 117/70 98 Room Air 10/18 1725 98.2 78 19 118/69 98 / 1720 86 19 118/69 95 10/18 1715 93 17 96/76 95 10/18 1710 85 15 138/102 95 10/18 1705 91 18 119/69 95 10/18 1702 99.1 93 17 123/70 95 10/18 1450 98.1 78 20 136/89 96 Room Air I&O 10/18 0800 / 1600 10/19 0000 Intake Total 0 638 Output Total 0 475 Balance 0 163 General Appearance Oriented X3, Cooperative HEENT PERRLA Lungs Normal air movement Cardiovascular Normal S1 and S2 Abdomen Soft, No tenderness Extremities No edema, Normal pulses LAB Results Laboratory Tests 10/18 10/18 10/19 10/19 0920 0921 0500 0540 Chemistry Plasma Sodium (136 - 145 mmol/L) 140 Pending Plasma Potassium (3.5 - 5.1 mmol/L) 3.7 Pending Plasma Chloride (98 - 107 mmol/L) 102 Pending CO2 (Enzymatic) (21 - 32 mmol/L) 22 Pending BUN (7 - 18 mg/dL) 14 Pending Creatinine (0.6 - 1.3 mg/dL) 0.9 Pending Est GFR ( Amer) (mL/min) >60 Pending Est GFR (Non-Af Amer) (mL/min) >60 Pending Glucose (70 - 110 mg/dL) 165 Pending Plasma Calcium (8.5 - 10.1 mg/dL) 9.0 Pending Plasma Magnesium Pending Total Bilirubin (0.0 - 1.0 mg/dL) 0.4 Pending AST (15 - 37 U/L) 77 Pending ALT (12 - 78 U/L) 121 Pending Alkaline Phosphatase (46 - 116 U/L) 61 Pending Total Protein (6.4 - 8.2 g/dL) 8.6 Pending Albumin (3.3 - 5.0 g/dL) 4.6 Pending Triglycerides Pending Cholesterol Pending LDL Cholesterol, Calc Pending HDL Cholesterol Pending LDL/HDL Ratio Pending Cholesterol/HDL Ratio Pending Coronary Risk Interp Pending Amylase (25 - 115 U/L) 51 Lipase (73 - 393 U/L) 138 Hematology WBC (4.5 - 11.5 K/uL) 15.4 11.3 RBC (4.50 - 5.90 M/uL) 4.74 3.93 Hgb (13.5 - 17.5 gm/dL) 15.3 12.8 Hct (41.0 - 53.0 %) 44.8 37.2 MCV (80 - 100 fL) 95 95 MCH (26 - 34 pg) 32 33 RDW (11.6 - 14.8 %) 13.1 13.2 Neut % (Auto) (50 - 75 %) 87.9 75.3 Lymph % (Auto) (25 - 40 %) 7.6 14.6 [place] % (Auto) (3 - 14 %) 4.2 9.2 Eos % (Auto) (0 - 4 %) 0.1 0.4 Baso % (Auto) (0 - 2 %) 0.2 0.5 Plt Count, EDTA (150 - 400 K/uL) 215 181 PUBS MCHC (31 - 37 g/dL) 34 35 Urines Urine Color YELLOW Urine Appearance CLEAR Urine pH (5.0 - 8.0) 7.0 Ur Specific [place] (1.010 - 1.030) 1.020 Urine Protein (NEGATIVE) TRACE Urine Ketones (NEGATIVE) 2+ Urine Blood (NEGATIVE) NEGATIVE Urine Nitrite (NEGATIVE) NEGATIVE Urine Bilirubin (NEGATIVE) NEGATIVE Urine Urobilinogen (0.2 - 1.0 EU/dL) 0.2 Ur Leukocyte Esterase (NEGATIVE) NEGATIVE Urine RBC (0 - 1 rbc/hpf) 0-1 Urine WBC (0 - 1 wbc/hpf) RARE Ur Epithelial Cells (0 - 5 EPI/hpf) NONE SEEN Urine Bacteria (NONE SEEN) NONE SEEN Urine Glucose (NEGATIVE) NEGATIVE Urine Comment CULT NOT INDICATED Microbiology Date/Time Procedure - Status Source Growth 10/18 1645 CLOtest - RECD GASTRIC Assessment and Plan Problem List 1. Epigastric abdominal pain Plan Patient's pain has decreased. Plans for patient to follow-up with outpatient PCP. Patient can be scheduled for a outpatient HIDA scan with an ejection fraction. No significant concerns was seen on the recent EGD. No gastritis, no masses, no ulceration. No bleeding. 2. GERD (gastroesophageal reflux disease) Plan Continue with the PPI. Patient will be sent home with pantoprazole 40 mg to be taken daily. Strong encouragement to discontinue tobacco use. This could be an irritant to the current long-standing condition. 3. Vomiting Plan Vomiting has resolved. 4. Intractable abdominal pain Plan Persistent pain in the epigastric region. Followed by general surgery during her hospitalization. EGD essentially normal. Recommended follow-up with primary care physician. HIDA scan is recommended at this time. Continue with the tobacco cessation program. Continue with the GERD precautions. Discussed pain control. Patient be sent home with Dilaudid 2 mg tabs to be taken every 4-6 hours as needed. E&M Codes Rounding: Obsv-Comp/[id number]
--- NOTE | 2016-10-19 06:47 | Progress Note ---
Subjective General Less abdominal discomfort than on admission. Tolerating by mouth. Ambulatory. No shortness of breath or chest pain. Physical Exam Vital Signs / I&Os Vital Signs Date Time Temp Pulse Resp B/P Pulse O2 O2 Flow FiO2 Ox Delivery Rate 10/19 0303 98.1 76 18 118/72 95 Room Air 10/18 2305 98.2 94 18 127/68 95 Room Air 10/18 2021 89 18 123/78 96 Room Air 10/18 1840 98.1 91 18 126/81 96 10/18 1820 84 18 120/77 96 Room Air 10/18 1730 97.0 83 93 117/70 98 Room Air 10/18 1725 98.2 78 19 118/69 98 10/18 1720 86 19 118/69 95 10/18 1715 93 17 96/76 95 10/18 1710 85 15 138/102 95 10/18 1705 91 18 119/69 95 10/18 1702 99.1 93 17 123/70 95 10/18 1450 98.1 78 20 136/89 96 Room Air I&O 10/18 0800 10/18 1600 10/19 0000 Intake Total 0 638 Output Total 0 475 Balance 0 163 General Appearance Alert, Oriented X3, Cooperative, No acute distress HEENT PERRLA Lungs Clear to auscultation Neck No JVD Cardiovascular Regular rate and rhythm Abdomen Normal bowel sounds, slight tenderness in epigastric region. Abdomen nondistended normoactive bowel sounds Extremities No edema Skin no peripheral cyanosis. Warm and dry Neurological No lateralizing signs Psych/Mental Status Mood normal LAB Results White count down to 11.3. Liver function studies normal. Laboratory Tests 10/18 10/18 10/19 10/19 0920 0921 0500 0540 Chemistry Plasma Sodium (136 - 145 mmol/L) 140 141 Plasma Potassium (3.5 - 5.1 mmol/L) 3.7 3.5 Plasma Chloride (98 - 107 mmol/L) 102 105 CO2 (Enzymatic) (21 - 32 mmol/L) 22 28 BUN (7 - 18 mg/dL) 14 10 Creatinine (0.6 - 1.3 mg/dL) 0.9 0.9 Est GFR ( Amer) (mL/min) >60 >60 Est GFR (Non-Af Amer) (mL/min) >60 >60 Glucose (70 - 110 mg/dL) 165 109 Plasma Calcium (8.5 - 10.1 mg/dL) 9.0 8.0 Plasma Magnesium (1.8 - 2.4 mg/dL) 1.9 Total Bilirubin (0.0 - 1.0 mg/dL) 0.4 0.6 AST (15 - 37 U/L) 77 39 ALT (12 - 78 U/L) 121 83 Alkaline Phosphatase (46 - 116 U/L) 61 48 Total Protein (6.4 - 8.2 g/dL) 8.6 7.2 Albumin (3.3 - 5.0 g/dL) 4.6 3.6 Triglycerides (30 - 200 mg/dL) 54 Cholesterol (140 - 200 mg/dL) 174 LDL Cholesterol, Calc (mg/dL) 93 HDL Cholesterol (32 - 96 mg/dL) 71 LDL/HDL Ratio 1.3 Cholesterol/HDL Ratio 2.5 Coronary Risk Interp (0.4 - 1.0) 0.6 Amylase (25 - 115 U/L) 51 Lipase (73 - 393 U/L) 138 Hematology WBC (4.5 - 11.5 K/uL) 15.4 11.3 RBC (4.50 - 5.90 M/uL) 4.74 3.93 Hgb (13.5 - 17.5 gm/dL) 15.3 12.8 Hct (41.0 - 53.0 %) 44.8 37.2 MCV (80 - 100 fL) 95 95 MCH (26 - 34 pg) 32 33 RDW (11.6 - 14.8 %) 13.1 13.2 Neut % (Auto) (50 - 75 %) 87.9 75.3 Lymph % (Auto) (25 - 40 %) 7.6 14.6 [place] % (Auto) (3 - 14 %) 4.2 9.2 Eos % (Auto) (0 - 4 %) 0.1 0.4 Baso % (Auto) (0 - 2 %) 0.2 0.5 Plt Count, EDTA (150 - 400 K/uL) 215 181 PUBS MCHC (31 - 37 g/dL) 34 35 Urines Urine Color YELLOW Urine Appearance CLEAR Urine pH (5.0 - 8.0) 7.0 Ur Specific [place] (1.010 - 1.030) 1.020 Urine Protein (NEGATIVE) TRACE Urine Ketones (NEGATIVE) 2+ Urine Blood (NEGATIVE) NEGATIVE Urine Nitrite (NEGATIVE) NEGATIVE Urine Bilirubin (NEGATIVE) NEGATIVE Urine Urobilinogen (0.2 - 1.0 EU/dL) 0.2 Ur Leukocyte Esterase (NEGATIVE) NEGATIVE Urine RBC (0 - 1 rbc/hpf) 0-1 Urine WBC (0 - 1 wbc/hpf) RARE Ur Epithelial Cells (0 - 5 EPI/hpf) NONE SEEN Urine Bacteria (NONE SEEN) NONE SEEN Urine Glucose (NEGATIVE) NEGATIVE Urine Comment CULT NOT INDICATED Microbiology Date/Time Procedure - Status Source Growth 10/18 1645 CLOtest - RECD GASTRIC Assessment and Plan Problem List 1. Epigastric pain Plan Epigastric pain improved. If patient discharged today recommend he followup with his primary care provider and scheduled for HIDA scan with ejection fraction.
[2016-10-19 07:30] VITALS: BP 109/66
--- NOTE | 2016-10-19 10:01 | NUR ---
PATIENT AMBULATING INDEPENDENTLY IN ROOM. STATES PAIN 6/10 EPIGASTRIC. DESCRIBES IT SHARP. LUNGS CLEAR. BT'S + X 4. FLATUS +. IN ROOM. PATIENT REQUESTING TO DC [facility]NA. DR. CRAWFORD HAS WRITTEN ORDERS AND TOLD PATIENT HE WANTS HIM TO FOLLOW UP WITH HIS PCP AND IS RECOMMENDING A HIDA SCAN BUT HE IS NOT ORDERING THIS HIMSELF AT THIS TIME. PATIENT STATED UNDERSTANDING. PATIENT STATED HE JUST HAD AN APPT WITH HIS PCP A WEEK AGO AND DIDN'T WANT TO SEE HIM BUT DR. CRAWFORD IS NOT ORDERING HIDA SCAN FROM HERE SO PATIENT IS TO SEE PCP REGARDING THIS AND HE UNDERSTANDS.
[2016-10-19] MEDS ORDERED: DILAUDID2 MG PO (10:20)
[2016-10-19] MEDS ORDERED: PANTOPRAZOLE SO40 MG PO (10:21)
[2016-10-19] MEDS ORDERED: NICOTINE T21 MG/24 H TOP (10:22)
[2016-10-19] MEDS ORDERED: CYCLOBENZAPRINE10 MG PO (10:25)
--- NOTE | 2016-10-19 10:37 | Provider's Discharge Care Plan ---
Problem, Goal, Plan Problem List 1. Epigastric abdominal pain Goals: Improve disease control, Therapeutic intervention Instructions: Follow up as directed, discontinue tobacco use 2. GERD (gastroesophageal reflux disease) Goals: Improve disease control, Therapeutic intervention Instructions: Follow up as directed 3. Vomiting Goals: Improve disease control, Therapeutic intervention Instructions: Follow up as directed 4. Intractable abdominal pain Goals: Diagnostic testing, Therapeutic intervention Instructions: Follow up as directed 5. Spasm Goals: Improved health/wellness, Therapeutic intervention Instructions: Flexeril for the antispasmotic
--- NOTE | 2016-10-19 12:12 | NUR ---
DC'D IV TO RFA, HEMOSTASIS ACHIEVED AND SECURED WITH GAUZE AND TAPE. DC INSTRUCTIONS GIVEN TO PATIENT AND SPOUSE. PATIENT TRANSPORTED TO HOME BY SPOUSE AND ESCORTED OUT OF FACILITY BY ROOF TILER.
== END 2016-10-19 12:00 | disposition home or self-care (01) ==
LOC: ED SRH 09:02 → ACUTE2 SRH 13:59 → TRANS SRH 13:59 → ACUTE2 SRH 14:50
PROVIDERS: Specialist; ADMIT Family Medicine
PROC: 0DB68ZX Excision of Stomach, Via Natural or Artificial Opening Endoscopic, Diagnostic (ICD-10-PCS; principal; 2016-10-18 16:00)
DX: R10.13 Epigastric pain (principal); R11.10 Vomiting, unspecified; K31.7 Polyp of stomach and duodenum; K21.9 Gastro-esophageal reflux disease without esophagitis; F17.220 Nicotine dependence, chewing tobacco, uncomplicated
CPT/HCPCS: 29229; 29230; 29264; 50004; 60001; 82943; 83526; 90004; 90074; 90100; 90705; 92235; 92530; 92690; 92720; 95059